=== PATIENT | male | born 1980 | race Caucasian/White ===

== ENCOUNTER 2019-11-29 15:40 | Inpatient (IN) ==
--- NOTE | 2019-11-29 16:18 | Emergency Department Note ---
History of Present Illness General Chief complaint: Shortness of Breath/Dyspnea Stated complaint: SENT FROM [place], SOB Time Seen by Provider: 11/29/19 15:47 Source: patient Mode of arrival: ambulatory Limitations: no limitations History of Present Illness Provider complaint: Shortness of breath with exertion Onset (ago): day(s) 1 Location: chest Radiation: non-radiation Severity: moderate Associated symptoms: + cough and + fever/chills Treatments prior to arrival: none This is a 39-year-old male who presents from home with complaints of shortness of breath on exertion. Patient states he went to [facility] and after having a chest x-ray there, was referred here for additional testing. Patient states he has felt well recently and yesterday morning shortly after waking up had a vigorous fit of coughing, and subsequent to that felt a little bit short of breath with exertion or movement the rest of the day. Patient denies any sputum production. Patient states he does occasionally have symptoms which he feels are likely seasonal allergies. No recent fevers or chills. No known sick contact. No accompanying GI symptoms. No chest pain. Patient states the symptoms persisted today so he went to [facility] where he had a chest x-ray and was told he has a small pneumothorax. Patient states he was also tested for coronavirus. Patient is not a smoker, no history of asthma or other pulmonary disease. No history in him or family member of any connective tissue disorders including Marfan's. No recent trauma. Pt seen during a time of high acuity and national emergency pandemic while wearing PPE. Home Medications Home Medications Medication Instructions Recorded Confirmed Type acetaminophen [Tylenol Extra 1,000 mg PO Q6H PRN 11/29/19 11/29/19 History Strength] hydrochlorothiazide 12.5 mg PO DAILY 11/29/19 11/29/19 History loratadine [Claritin] 10 mg PO DAILY PRN 11/29/19 11/29/19 History Allergies Allergy/AdvReac Type Severity Reaction Status Date / Time No Known Allergies Allergy Unverified 11/29/19 17:07 Past Med/Surg History Surgical History (Updated 11/29/19 @ 21:15 by Lena Rockwell DO) History of wisdom tooth extraction Family History (Updated 11/29/19 @ 21:16 by Lena Rockwell DO) Other Cancer Social History (Updated 11/29/19 @ 21:16 by Lena Rockwell DO) Preferred Language: Congolese Communication Ability: [employer] Consultant Required: No Beliefs That Will Affect Care: None marital status: Single Current Living Situation: Alone Feels Safe at Home: Yes Smoking Status: Never smoker Hx Alcohol Use: Yes Alcohol type: beer, wine and hard liquor Hx Substance Use: No Review of Systems See HPI for pertinent positives & negatives. and A total of 10 systems reviewed and were otherwise negative Physical Exam Vital Signs Vital Signs - 24 hr 11/29/19 15:43 11/29/19 16:05 11/29/19 17:33 Temperature 36.9 C Temperature Source Oral Pulse Rate 120 H 105 H Pulse Rate from SpO2 Sensor 100 H Respiratory Rate 24 20 Respiratory Effort / Characteristics Non-Labored Spontaneous Blood Pressure 154/87 H 145/89 H Blood Pressure Mean 109 99 Pulse Oximetry 98 98 95 Oxygen Delivery Method Room Air Room Air Sepsis Recent Fever Within 48 Hours No Sepsis New/Unexplained Change in Mental Status No Sepsis Action Taken by Nursing No Action Required 11/29/19 17:40 11/29/19 18:00 11/29/19 18:01 Temperature Temperature Source Pulse Rate 100 H 96 H 91 H Pulse Rate from SpO2 Sensor 101 H 101 H 95 H Respiratory Rate 22 22 20 Respiratory Effort / Characteristics Blood Pressure 150/96 H Blood Pressure Mean 103 Pulse Oximetry 92 92 93 Oxygen Delivery Method Sepsis Recent Fever Within 48 Hours Sepsis New/Unexplained Change in Mental Status Sepsis Action Taken by Nursing 11/29/19 18:30 11/29/19 19:00 11/29/19 19:01 Temperature Temperature Source Pulse Rate 101 H 92 H 94 H Pulse Rate from SpO2 Sensor 102 H 95 H 93 H Respiratory Rate 22 28 H 30 H Respiratory Effort / Characteristics Blood Pressure 148/90 H 148/92 H Blood Pressure Mean 107 105 Pulse Oximetry 91 94 Oxygen Delivery Method Sepsis Recent Fever Within 48 Hours Sepsis New/Unexplained Change in Mental Status Sepsis Action Taken by Nursing 11/29/19 19:30 11/29/19 19:31 11/29/19 20:00 Temperature Temperature Source Pulse Rate 99 H 94 H 96 H Pulse Rate from SpO2 Sensor 99 H 95 H 97 H Respiratory Rate 28 H 24 24 Respiratory Effort / Characteristics Blood Pressure 137/92 134/103 H Blood Pressure Mean 102 118 Pulse Oximetry 94 94 91 Oxygen Delivery Method Sepsis Recent Fever Within 48 Hours Sepsis New/Unexplained Change in Mental Status Sepsis Action Taken by Nursing 11/29/19 20:01 11/29/19 20:30 Temperature Temperature Source Pulse Rate 99 H 100 H Pulse Rate from SpO2 Sensor 103 H Respiratory Rate 28 H 25 H Respiratory Effort / Characteristics Blood Pressure 132/93 Blood Pressure Mean 111 Pulse Oximetry 95 Oxygen Delivery Method Sepsis Recent Fever Within 48 Hours Sepsis New/Unexplained Change in Mental Status Sepsis Action Taken by Nursing GENERAL: alert, well appearing, well nourished, no distress, non-toxic EYE EXAM: normal conjunctiva, PERRL and EOM's grossly intact OROPHARYNX: no exudate, no erythema, lips, buccal mucosa, and tongue normal and mucous membranes are moist NECK: supple, no nuchal rigidity, no adenopathy, non-tender LUNGS: Clear to auscultation. Normal chest wall mechanics, no w/r/r, slightly decreased with auscultation of the left upper lobe HEART: no murmurs, S1 normal and S2 normal ABDOMEN: abdomen soft, non-tender, normo-active bowel sounds, no masses, no rebound or guarding. BACK: Back is symmetrical on inspection and there is no deformity, no midline tenderness, no CVA tenderness. SKIN: no rashes and no bruising UPPER EXTREMITIES: upper extremities are grossly normal. FROM, nml pulses b/l. LOWER EXTREMITIES: No pitting edema. FROM, nml pulses b/l. NEURO EXAM: Normal sensorium, cranial nerves II-XII grossly intact, normal speech, no gross weakness of arms, no gross weakness of legs. Gross sensation intact. Procedures Chest Tube Chest Tube 1: Chest Tube Location: left Size of Tube (cm): 11 Chest Tube Prep: Yes other Local Anesthetic: lidocaine 1% and with epi Amount of anesthesia used (mL): 4 Incision Made With: #11 blade Post Procedure: other Tube Drainage: none Post Procedure CXR?: Yes Patient Tolerated Procedure: Yes Course Course 1640: Case discussed with Dr. Zimmerman, pulmonology. Requests for a chest tube to be placed here and then patient to have a noncontrast CT and admitted to the hospitalist service. 1849: CAse discussed with Dr. Lal. 2015: I was contacted by Dr. Rockwell, as follow-up chest x-ray appears that patient's left lung is still collapsed and not reinflating as expected. 2035: Patient's vital signs continue to be stable. Patient denies any increased work of breathing. For event apparatus examined again to look for any dislodgment or obstruction. 2100: Time spent by myself, charge nurse and additional nursing staff trying to set up suction per your event instruction guidelines and the packaging. We tried to dial back the wall suction initially, however then transferred over to a Pleur-evac waterseal device. This was connected to the Thora vent using the sterile tubing provided in the packaging. 5: I again checked on the patient and he remains hemodynamically stable with no changing symptoms. Again examined the device and tried to provide additional seal with taping along the top. The valve was no longer oscillating as would be expected. Suction was discontinued and I tried to manually aspirate air out of the lung. We took another chest x-ray and this shows showed the collapse. 0: I replaced the Thora vent catheter and then manually aspirated additional air of the lung. I sent this for approximately 20 to 25 minutes at bedside and patient reported feeling improved and a sense of needing to cough. I then stopped on the patient that this process became painful and a small amount of blood was noted coming up through the device. A repeat chest x-ray was ordered. 2225: Repeat chest x-ray shows improvement in reexpansion of the left lung. Patient reports feeling markedly improved. Vital signs remained stable. Case discussed with hospitalist again to update on condition. Administered Medications Acetaminophen (Tylenol) 1,000 mg PO Q6H PRN PRN Reason: Pain Stop: 12/29/19 23:41 Last Admin: 11/30/19 16:05 Dose: 1,000 mg Documented by: [id number] Admin: 11/30/19 05:20 Dose: 1,000 mg Documented by: [id number] Hydrochlorothiazide (Hctz) 12.5 mg PO DAILY BORA Stop: 12/30/19 08:59 Last Admin: 11/30/19 09:21 Dose: 12.5 mg Documented by: [id number] Discontinued Medications Fentanyl Citrate (Fentanyl Citrate) 50 mcg IV Q15M PRN PRN Reason: Pain Stop: 12/13/19 17:33 Last Admin: 11/29/19 17:50 Dose: 50 mcg Documented by: [id number] Lorazepam (Ativan) 0.5 mg in 1 mls @ 0.5 mls/min IV UD PRN PRN Reason: Anxiety Stop: 12/29/19 17:33 Last Admin: 11/29/19 17:48 Dose: 0.5 mls/min Documented by: [id number] Sodium Chloride (Nss 1000ml) 1,000 mls @ 125 mls/hr IV .Q8H BORA Stop: 12/29/19 17:44 Last Infusion: 11/29/19 23:20 Dose: 0 mls/hr Documented by: [id number] Admin: 11/29/19 17:48 Dose: 125 mls/hr Documented by: [id number] Lidocaine/Epinephrine (Buffered Xylocaine/Epinephrine 1%) Confirm Administered Dose 20 ml .ROUTE .STK-MED ONE Stop: 11/29/19 17:56 Last Admin: 11/29/19 17:58 Dose: 20 ml Documented by: [id number] Critical Care Time Critical Care Time: Yes Total Critical Care Time: 62 Critical care of 62min performed to assess and manage high likelihood of life- threatening pneumothorax, involving labs and chest x-rays performed with assessment to evaluate pneumothorax diagnosis with frequent reassessment. This time includes bedside time, treatment discussions with patient/family/consultants, documentation time and excludes procedure time. Medical Decision Making Differential Diagnosis Differential diagnoses includes but is not limited to pneumonia, bronchitis, COPD/Asthma exacerbation, pneumothorax, pulmonary embolism, congestive heart failure, acute coronary syndrome Medical Records Attestation: I reviewed the patient's medical records. Home Medications Current Medication List: was personally reviewed by me Laboratory Data Attestation: I reviewed the patient's lab results. Result diagrams: 11/29/19 17:28 11/29/19 17:28 Lab Results 11/29/19 11/29/19 Range/Units 17:28 17:28 WBC 13.27 H (4.8-10.8) K/uL RBC 5.08 (4.7-6.1) M/uL Hgb 16.0 (14.0-18.0) g/dL Hct 44.7 (42-52) % MCV 88.0 (80-100) fL MCH 31.5 (25-34) pg MCHC 35.8 (32-36) g/dL RDW Std Deviation 40.2 (36.4-46.3) fL RDW Coeff of Danny 12.6 (11.5-14.5) % Plt Count 333 (130-400) K/uL MPV 9.5 (7.4-10.4) fL Immature Gran % (Auto) 0.2 % Neut % (Auto) 82.3 % Lymph % (Auto) 8.2 % [place] % (Auto) 8.2 % Eos % (Auto) 0.7 % Baso % (Auto) 0.4 % Immature Gran # (Auto) 0.03 H (0.00-0.02) K/uL Neut # (Auto) 10.92 H (1.4-6.5) K/uL Lymph # (Auto) 1.09 L (1.2-3.4) K/uL [place] # (Auto) 1.09 H (0.11-0.59) K/uL Eos # (Auto) 0.09 (0-0.5) K/uL Baso # (Auto) 0.05 (0-0.2) K/uL Sodium 138 (136-145) mmol/L Potassium 3.5 (3.5-5.1) mmol/L Chloride 102 (98-107) mmol/L Carbon Dioxide 30 (21-32) mmol/L Anion Gap 6.0 (3-11) BUN 8 (7-18) mg/dl Creatinine 1.09 (0.6-1.4) mg/dl Est Cr Clr Drug Dosing 101.8 ml/min Est GFR ( Amer) 100.0 Est GFR (Non-Af Amer) 86.3 BUN/Creatinine Ratio 7.7 L (10-20) Glucose 91 (70-99) mg/dl Calcium 9.0 (8.5-10.1) mg/dl Total Bilirubin 0.5 (0.2-1) mg/dl AST 10 L (15-37) U/L ALT 26 (12-78) U/L Alkaline Phosphatase 81 (45-117) U/L Total Protein 7.9 (6.4-8.2) gm/dl Albumin 4.0 (3.4-5.0) gm/dl Globulin 3.9 (2.5-4.0) gm/dl Albumin/Globulin Ratio 1.0 (0.9-2) Imaging Data Radiologist's Impression: XR chest 2V PA/lateral CLINICAL HISTORY: pneumothorax COMPARISON STUDY: No previous studies for comparison. FINDINGS: 50% left-sided pneumothorax. Right lung is clear. Diaphragms are smooth. IMPRESSION: 50% left-sided pneumothorax. ACT 112: Negative or not required by law. The above report was generated using voice recognition software. It may contain grammatical, syntax or spelling errors. Electronically signed by: Jaime Mcknight M.D. 11/29/2019 4:[address] chest wo con CT DOSE: 431.98 mGycm HISTORY: Dyspnea pneumothorax, s/p thoravent TECHNIQUE: Multiaxial CT images of the chest were performed without contrast. A dose lowering technique was utilized adhering to the principles of ALARA. COMPARISON: None. FINDINGS: 50-60% left-sided pneumothorax. The collapsed lung suggests either compressive atelectasis versus left basilar infiltrative as well as left upper lobe infiltrative process. Right lung is considered clear. No evidence for right-sided pneumothorax. IMPRESSION: 1. 50-60% left-sided pneumothorax. 2. Compressive atelectasis of the left lower lobe as well as components of the left upper lobe. 3. This may be on the basis of compressive atelectasis versus infiltrative change. 4. Right lung is clear. ACT 112: Negative or not required by law. The above report was generated using voice recognition software. It may contain grammatical, syntax or spelling errors. Electronically signed by: Jaime Mcknight M.D. 11/29/2019 7:24 PM ECG Data Indication: + SOB/dyspnea Rate (beats per minute): 94 Rhythm: + normal sinus ECG Intervals/blocks: + Normal QRS and + Normal QT ECG [place]: + Normal ECG ST segments: + T-wave inversions (III) Comparison ECG Date: no prior available Blood Pressure Blood Pressure Findings: Normal blood pressure MDM Narrative Patient presenting here after spontaneous pneumothorax. No recent trauma. No history of lung disease, asthma, smoking, connective tissue disorder. Possible rupture blood with fit of coughing yesterday that seem to initiate the patient's symptoms. Case discussed with pulmonology who can follow the patient and request placement of a chest tube and admission to the hospitalist service. Patient hemodynamically stable throughout. Thora vent catheter placed, and after eventual troubleshooting and replacement patient with reexpanded left lung with good results. Patient never hypoxic, tachypnea improved. Case discussed with hospitalist and patient was seen in the emergency room by pulmonology. Patient was kept aware of all results and plan, and verbalized understanding. CT of the chest performed per pulmonology request. An order was placed for continuous cardiac monitoring. The monitor shows a rate of 90 with normal sinus_ rhythm. Impression & Plan Pneumothorax Discharge Plan Visit Data *Final* Discharge Date/Time: 11/29/19 23:13 Chief Complaint: Shortness of Breath/Dyspnea Stated Complaint: SENT FROM [facility], [facility] ED Provider: Isabel Liu Discharge Problem: Pneumothorax Patient Disposition: Admitted As Inpatient Discharge Instructions Interventions: ED Discharge Assessment Last Done: 11/29/19 23:13 Discharge Problem: Pneumothorax Qualifiers: Pneumothorax type: spontaneous, primary Qualified Code(s): J93.11 - Primary spontaneous pneumothorax
--- NOTE | 2019-11-29 16:38 | XRay Report ---
XR chest 2V PA/lateral CLINICAL HISTORY: pneumothorax COMPARISON STUDY: No previous studies for comparison. FINDINGS: 50% left-sided pneumothorax. Right lung is clear. Diaphragms are smooth. IMPRESSION: 50% left-sided pneumothorax. ACT 112: Negative or not required by law. The above report was generated using voice recognition software. It may contain grammatical, syntax or spelling errors. Electronically signed by: Jaime Mcknight M.D. 11/29/2019 4:37 PM
[2019-11-29] MEDS ORDERED: fentaNYL citrate 100 MCG/2 ML VIAL IV PRN (17:34)
[2019-11-29] MEDS ORDERED: LORazepam 0.5 MG/1 ML VIAL IV PRN (17:34)
[2019-11-29] MEDS ORDERED: SODIUM CHLORIDE 0.9% 1000ML 1,000 ML IV SCH (17:45)
[2019-11-29 17:55] LABS: Basophils # (auto) 0.05 K/uL (0-0.2); Basophils % (auto) 0.4 %; Eosinophils # (auto) 0.09 K/uL (0-0.5); Eosinophils % (auto) 0.7 %; Hematocrit (blood only) 44.7 % (42-52); Immature Granulocytes # (auto) 0.03 K/uL (0.00-0.02); Immature Granulocytes % (auto) 0.2 %; Lymphocytes # (auto) 1.09 K/uL (1.2-3.4); Lymphocytes % (auto) 8.2 %; Mean Corpuscular Hemoglobin 31.5 pg (25-34); Mean Corpuscular Hgb Conc 35.8 g/dL (32-36); Mean Platelet Volume 9.5 fL (7.4-10.4); Monocytes # (auto) 1.09 K/uL (0.11-0.59); Monocytes % (auto) 8.2 %; Neutrophils # (auto) 10.92 K/uL (1.4-6.5); Neutrophils % (auto) 82.3 %; Platelet Count 333 K/uL (130-400); RDW Coefficient of Variation 12.6 % (11.5-14.5); RDW Standard Deviation 40.2 fL (36.4-46.3); Red Blood Count 5.08 M/uL (4.7-6.1); White Blood Count 13.27 K/uL (4.8-10.8)
[2019-11-29] MEDS ORDERED: LIDO/EPINEPHRINE/SOD BICARB 20 ML VIAL ONE (17:55)
[2019-11-29 18:09] LABS: BUN Creatinine Ratio 7.7 (10-20); Creatinine Clr Calc Pharmacy 101.8 ml/min; Est GFR (Non-African American) 86.3; Potassium 3.5 mmol/L (3.5-5.1)
[2019-11-29 18:12] LABS: Bilirubin,Total 0.5 mg/dl (0.2-1); Globulin 3.9 gm/dl (2.5-4.0); Total Protein 7.9 gm/dl (6.4-8.2)
--- NOTE | 2019-11-29 18:55 | Pulmonary Consultation ---
Date of Consultation November 29, 2019 Assessment & Plan (1) Pneumothorax: Impression: 39-year-old with spontaneous pneumothorax. This was after an episode of coughing. Mary Grace effect is possible. Rupture of apical bleb would also be in the differential. No history of structural lung disease, asthma, occupational or environmental exposure to suggest structural lung disease. Recommendations: 1. Pneumothorax: We will await follow-up imaging to see if it is resolved. The Thora vent typically cannot be attached to suction so we will have to see how his follow-up imaging looks. If there is significant residual pneumothorax, we may need to place a catheter such as a pneumo dart order small bore chest tube. Await CT scan of the chest to determine whether or not there is significant str uctural lung disease. The patient was advised that he should not fly by air for 6 weeks or participate in any significant changes in altitude or air pressure including diving. 3. Pain control per primary service. Chest x-ray in a.m. Additional recommendations will be based on follow-up imaging. Recommendations and plan were discussed with the patient. Questions were answered to the best my ability. He expressed understanding and is in agreement with plan as outlined. History of Present Illness History of Present Illness Asked by the ER to evaluate this patient with a spontaneous pneumothorax. History is obtained from discussion with the patient as well as review the electronic medical record. Patient is a 39-year-old non-smoking male who states he woke up yesterday with a cough. He did not feel any popping in his chest and essentially did not do much yesterday. Today he experience of shortness of breath and initially was seen at an urgent care at an outside facility. Apparently they performed a chest x-ray which is not available to review and told him he had a collapsed lung and referred him to the emergency department here. On arrival here his vital signs were stable. Chest x-ray demonstrated only approximately 50% left-sided pneumothorax. The ER staff has placed a left anterior Thora vent. Follow-up imaging is currently pending. Per nursing, the Thora vent was aspirated once it was placed. The patient denies any family history of lung disease. He is a non-smoker. No e-cigarette use. No viral illness symptoms. No family history of pneumothorax. No history of skin lesions. No trauma Allergies Allergy/AdvReac Type Severity Reaction Status Date / Time No Known Allergies Allergy Unverified 11/29/19 17:07 Home Medications Home Medications Medication Instructions Recorded Confirmed Type acetaminophen [Tylenol Extra 1,000 mg PO Q6H PRN 11/29/19 11/29/19 History Strength] hydrochlorothiazide 12.5 mg PO DAILY 11/29/19 11/29/19 History loratadine [Claritin] 10 mg PO DAILY PRN 11/29/19 11/29/19 History Patient History Social History Feels Safe at Home: Yes Smoking Status: Never smoker Review of Systems Review of Systems: All systems reviewed & are unremarkable except as noted in HPI & below Physical Exam Constitutional: WD/WN, vitals as above Neck: trachea midline, no thyromegaly Respiratory: normal respiratory effort, lungs clear to auscultation Cardiovascular: RRR, no murmur, no edema Chest (Breasts): Additional Comments: Left anterior Thora vent in place. Gastrointestinal (Abdomen): normal bowel sounds, soft, nontender, no hepatosplenomegaly Musculoskeletal: Extremities: extremities normal to inspection Skin: no rashes, warm and dry Neurologic: Nonfocal exam Lymphatic: no cervical lymphadenopathy Results & Data Results & Data ([facility]) Vital Signs (Past 12 Hours) Vital Signs Temp Pulse Resp BP Pulse Ox 11/29/19 17:40 100 H 22 92 11/29/19 17:33 105 H 20 145/89 H 95 11/29/19 16:05 98 11/29/19 15:43 36.9 C 120 H 24 154/87 H 98 Laboratory Results 11/29/19 17:28 11/29/19 17:28 Diagnostic Findings Chest x-ray independently reviewed. 50% left-sided pneumothorax identified. Follow-up imaging post catheter placement is pending. PG Care Time/CCT Total # of Minutes Spent Total Time Spent with Patient: Total time spent is greater than 50% in coordination of care (as documented) at patient's floor/unit and/or counseling patient: Coding Level of Care Code 33339 Inpt Consult Level 4 Diagnoses Pneumothorax J93.9
--- NOTE | 2019-11-29 19:25 | CT Scan Report ---
CT chest wo con CT DOSE: 431.98 mGycm HISTORY: Dyspnea pneumothorax, s/p thoravent TECHNIQUE: Multiaxial CT images of the chest were performed without contrast. A dose lowering techni que was utilized adhering to the principles of ALARA. COMPARISON: None. FINDINGS: 50-60% left-sided pneumothorax. The collapsed lung suggests either compressive atelectasis versus left basilar infiltrative as well as left upper lobe infiltrative process. Right lung is considered clear. No evidence for right-sided pneumothorax. IMPRESSION: 1. 50-60% left-sided pneumothorax. 2. Compressive atelectasis of the left lower lobe as well as components of the left upper lobe. 3. This may be on the basis of compressive atelectasis versus infiltrative change. 4. Right lung is clear. ACT 112: Negative or not required by law. The above report was generated using voice recognition software. It may contain grammatical, syntax or spelling errors. Electronically signed by: Jaime Mcknight M.D. 11/29/2019 7:24 PM
--- NOTE | 2019-11-29 21:07 | History & Physical Report ---
Date of Service November 29, 2019 Assessment & Plan (1) Pneumothorax: 39yo C male with history of HTN presenting with spontaneous PTX on left. He is hemodynamically stable, no tension physiology, adequate oxygenation on RA with no respiratory distress. Thoravent placed by ER attending, manual e vacuation attempted. -Admit to PCU -Place Thora-vent on low suction - is able to handle up to 15cm/H20 of suction. Will attempt suction. -Repeat CXR in AM -Pulmonary Consultation appreciated Present on Admission?: Yes (2) Hypertension: Blood pressure stable at present -Continue HCTZ F/E/N - Heplock. Monitor electrolytes and replete as needed Ppx - Low risk for DVT Code - Full Dispo -Admit to PCU Present on Admission?: Yes History of Present Illness Chief Complaint: spontaneous PTX Primary Care Provider: Aubrey Torres Hima Bowles is a pleasant 39yo C male with history of HTN on HCTZ therapy presenting with left sided spontaneous PTX. He reports developing a cough yesterday and some dyspnea on exertion that persisted through the day. His symptoms improved slightly but he still noted significant VENTURA and slight cough. He was seen at Urgent Care and had a CXR performed which revealed a left sided pneumothorax. Patient is comfortable, denies SOB at rest, no CP. He has never had PTX in the past. No history of structural lung disease, COPD/Asthma/Fibrosis. No trauma. No additional complaints at this time. Patient denies fevers/chills/nausea/vomiting/diarrhea/constipation. No change in taste or smell. ER Course: NSS x 1 L, Ativan 0.5mg, Fentanyl 50mcg. Thora-vent placement by ER attending Allergies Allergy/AdvReac Type Severity Reaction Status Date / Time No Known Allergies Allergy Unverified 11/29/19 17:07 Home Medications Home Medications Medication Instructions Recorded Confirmed Type acetaminophen [Tylenol Extra 1,000 mg PO Q6H PRN 11/29/19 11/29/19 History Strength] hydrochlorothiazide 12.5 mg PO DAILY 11/29/19 11/29/19 History loratadine [Claritin] 10 mg PO DAILY PRN 11/29/19 11/29/19 History Past Med/Surg History Medical History (Updated 11/29/19 @ 21:24 by Lena Rockwell DO) Hypertension Surgical History (Updated 11/29/19 @ 21:15 by Lena Rockwell DO) History of wisdom tooth extraction Family History (Updated 11/29/19 @ 21:16 by Lena Rockwell DO) Other Cancer Social History (Updated 11/29/19 @ 21:16 by Lena Rockwell DO) marital status: Single Feels Safe at Home: Yes Smoking Status: Never smoker Hx Alcohol Use: Yes Alcohol type: beer Hx Substance Use: No Review of Systems Review of Systems: All systems reviewed & are unremarkable except as noted in HPI & below Physical Exam Physical Exam: General: patient resting comfortably, NAD, non-toxic in appearance, AA&O x 4, facemask in place Skin: warm, dry, intact, no rashes or lesions HEENT: NC/AT, PERRL, EOMI, anicteric sclera, conjunctiva without injection, external ear normal to inspection and nontender, nares patent, moist mucus membranes, dentition intact, no oropharyngeal lesions, neck supple, trachea midline, no LAD, no thyromegaly, no JVD Heart: +S1/S2, regular, no m/r/g Lungs: absent breath sounds left apex to mid-lung, normal air entry in right, no rales/rhonchi/wheezes, Thora-vent in place Abd: +BS, soft, NT/ND, no masses/organomegaly/ascites Ext: warm, 2+ pulses in UE/LE bilaterally, no clubbing/cyanosis or edema Neuro: nonfocal, patient AA&O x 4, speech intact, no facial droop, moving all extremities on command with equal strength 5/5 Results & Data Results & Data ([facility]) Vital Signs (Past 12 Hours) Vital Signs Temp Pulse Resp BP Pulse Ox 11/29/19 20:01 99 H 28 H 11/29/19 20:00 96 H 24 134/103 H 91 11/29/19 19:31 94 H 24 94 11/29/19 19:30 99 H 28 H 137/92 94 11/29/19 19:01 94 H 30 H 94 11/29/19 19:00 92 H 28 H 148/92 H 11/29/19 18:30 101 H 22 148/90 H 91 11/29/19 18:01 91 H 20 93 11/29/19 18:00 96 H 22 150/96 H 92 11/29/19 17:40 100 H 22 92 11/29/19 17:33 105 H 20 145/89 H 95 11/29/19 16:05 98 11/29/19 15:43 36.9 C 120 H 24 154/87 H 98 Laboratory Results Lab Results 11/29/19 11/29/19 Range/Units 17:28 17:28 WBC 13.27 H (4.8-10.8) K/uL RBC 5.08 (4.7-6.1) M/uL Hgb 16.0 (14.0-18.0) g/dL Hct 44.7 (42-52) % MCV 88.0 (80-100) fL MCH 31.5 (25-34) pg MCHC 35.8 (32-36) g/dL RDW Std Deviation 40.2 (36.4-46.3) fL RDW Coeff of Danny 12.6 (11.5-14.5) % Plt Count 333 (130-400) K/uL MPV 9.5 (7.4-10.4) fL Immature Gran % (Auto) 0.2 % Neut % (Auto) 82.3 % Lymph % (Auto) 8.2 % [place] % (Auto) 8.2 % Eos % (Auto) 0.7 % Baso % (Auto) 0.4 % Immature Gran # (Auto) 0.03 H (0.00-0.02) K/uL Neut # (Auto) 10.92 H (1.4-6.5) K/uL Lymph # (Auto) 1.09 L (1.2-3.4) K/uL [place] # (Auto) 1.09 H (0.11-0.59) K/uL Eos # (Auto) 0.09 (0-0.5) K/uL Baso # (Auto) 0.05 (0-0.2) K/uL Sodium 138 (136-145) mmol/L Potassium 3.5 (3.5-5.1) mmol/L Chloride 102 (98-107) mmol/L Carbon Dioxide 30 (21-32) mmol/L Anion Gap 6.0 (3-11) BUN 8 (7-18) mg/dl Creatinine 1.09 (0.6-1.4) mg/dl Est Cr Clr Drug Dosing 101.8 ml/min Est GFR ( Amer) 100.0 Est GFR (Non-Af Amer) 86.3 BUN/Creatinine Ratio 7.7 L (10-20) Glucose 91 (70-99) mg/dl Calcium 9.0 (8.5-10.1) mg/dl Total Bilirubin 0.5 (0.2-1) mg/dl AST 10 L (15-37) U/L ALT 26 (12-78) U/L Alkaline Phosphatase 81 (45-117) U/L Total Protein 7.9 (6.4-8.2) gm/dl Albumin 4.0 (3.4-5.0) gm/dl Globulin 3.9 (2.5-4.0) gm/dl Albumin/Globulin Ratio 1.0 (0.9-2) Diagnostic Findings XR chest 2V PA/lateral CLINICAL HISTORY: pneumothorax COMPARISON STUDY: No previous studies for comparison. FINDINGS: 50% left-sided pneumothorax. Right lung is clear. Diaphragms are smooth. IMPRESSION: 50% left-sided pneumothorax. ACT 112: Negative or not required by law. The above report was generated using voice recognition software. It may contain grammatical, syntax or spelling errors. Electronically signed by: Jaime Mcknight M.D. 11/29/2019 4:37 PM Dictated: 11/29/19 1637 Transcribed: 11/29/[address] chest wo con CT DOSE: 431.98 mGycm HISTORY: Dyspnea pneumothorax, s/p thoravent TECHNIQUE: Multiaxial CT images of the chest were performed without contrast. A dose lowering technique was utilized adhering to the principles of ALARA. COMPARISON: None. FINDINGS: 50-60% left-sided pneumothorax. The collapsed lung suggests either compressive atelectasis versus left basilar infiltrative as well as left upper lobe infiltrative process. Right lung is considered clear. No evidence for right-sided pneumothorax. IMPRESSION: 1. 50-60% left-sided pneumothorax. 2. Compressive atelectasis of the left lower lobe as well as components of the left upper lobe. 3. This may be on the basis of compressive atelectasis versus infiltrative change. 4. Right lung is clear. ACT 112: Negative or not required by law. The above report was generated using voice recognition software. It may contain grammatical, syntax or spelling errors. Electronically signed by: Jaime Mcknight M.D. 11/29/2019 7:24 PM Dictated: 11/29/191921 Transcribed: 11/29/191921 ECG Additional Comments: The study shows NSR at 94bpm, normal axis, ZD=181, DDI=961, OVs=168, no acute ischemic changes Code Status & VTE Plan Code Status FULL PG Care Time/CCT Total # of Minutes Spent Total Time Spent with Patient: Total time spent is greater than 50% in coordination of care (as documented) at patient's floor/unit and/or counseling patient: Coding Level of Care Code 69942 Initial Inpt Care Lvl 2 Diagnoses Pneumothorax J93.11 Pneumothorax type: spontaneous, primary Hypertension I10 Hypertension type: unspecified (1) Pneumothorax Pneumothorax type: spontaneous, primary Qualified Code(s): J93.11 - Primary spontaneous pneumothorax (2) Hypertension Hypertension type: unspecified Qualified Code(s): I10 - Essential (primary) hypertension
[2019-11-30] MEDS: ACETAMINOPHEN 500 MG TAB PO PRN ×2 (05:20→16:05)
--- NOTE | 2019-11-30 07:43 | XRay Report ---
XR chest 1V portable CLINICAL HISTORY: Pneumothorax. COMPARISON STUDY: Chest CT November 29, 2019. Chest radiograph November 29, 2019 at 10:24 PM. FINDINGS: A small left apical pneumothorax is noted with superior pleural separation of 3 mm. This is similar to prior exam. Left pleural catheter is in place. Linear left basilar opacity favors atelect asis. Cardiac size is normal. There is no right pneumothorax. No pleural effusion is identified. IMPRESSION: Small left apical pneumothorax, similar to prior exam. ACT 112: Negative or not required by law. Electronically signed by: Evert Gregorio M.D. 11/30/2019 7:41 AM
--- NOTE | 2019-11-30 07:45 | XRay Report ---
XR chest 1V portable HISTORY: s/p thoravent COMPARISON: Chest 11/29/2019. FINDINGS: Interval placement of a chest tube within the left upper thorax. Large left pneumothorax wi th near complete collapse of the left lung persists. No significant midline shift. The right lung is clear. No pleural effusions. IMPRESSION: Interval placement of a left upper chest tube. The large left pneumothorax persists. ACT 112: Negative or not required by law. Electronically signed by: Josef Schumacher M.D. 11/30/2019 7:44 AM
--- NOTE | 2019-11-30 07:46 | XRay Report ---
XR chest 1V portable HISTORY: post thoravent COMPARISON: Chest 11/29/2019. FINDINGS: Left upper chest tube remains unchanged in position. Near-complete resolution of the left p neumothorax. Maximal pleural gap at the apex measures 7 mm. A few small linear densities within the l eft upper and lower lung zones likely represent subsegmental atelectasis. The right lung is clear. No mediastinal shift. The heart is normal in size. IMPRESSION: Near complete resolution of the left pneumothorax. Left upper chest tube remains unchanged in positio n. ACT 112: Negative or not required by law. Electronically signed by: Jsoef Schumacher M.D. 11/30/2019 7:45 AM
[2019-11-30] MEDS ORDERED: KETOROLAC TROMETHAMINE 15 MG/ML VIAL IV PRN (08:44)
--- NOTE | 2019-11-30 08:47 | Hospitalist Progress Note ---
Date of Service November 30, 2019 Assessment & Plan (1) Pneumothorax: 39 yo M with PMH HTN, admitted for management of pneumothorax. 1. Pneumothorax, improving - Thoravent in place, CXR at noon to follow improvement of PTX - pulm team discussed with patient at length plan options regarding advancement of thoravent to chest tube, removal of thoravent etc depending on CXR results. - appreciate continuing recommendations from pulmonary team 2. HTN - home HCTZ Code status: full code Dispo: home (2) Hypertension: Admission and Anticipated Discharge Date Admission Date: November 29, 2019 Supervising Physician Co-Signing Physician Notes I personally examined the patient and verified all alba points of history and exam, discussed case, and agree with decision making with Dr Grover. feeling ok reasonable pain control no significant SOB. vitals noted nad heent nc at mmm breathing unlabored no accessory muscles good effort skin no rashes no pallor or icterus spontaneous pneumothorax - oxygenating well, pain controlled. otherwise management per pulmonary (input appreciated) HTN - continue home meds, follow, control reasonable. otherwise as above Subjective 39 yo M who presented to ED with acute shortness of breath and dyspnea, found to have a pneumothorax on CXR, thoravent placed in ED. This morning feeling much improved, states he feels 80% of his normal function today. No trouble with breathing while walking around the room, no pain with inspiration. Denies hx of vaping, cigarette or chewing tobacco, says he smokes a cigar 1-2 times a year. 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 Only new exposure was staining deck on Saturday with paint but was not wearing a mask while doing so. Review of Systems Constitutional: no fever, no chills, no body aches and no fatigue Respiratory: no cough and no dyspnea Cardiovascular: no chest pain, no dyspnea and no edema Gastrointestinal: no abdominal pain, no nausea, no vomiting, no constipation and no diarrhea/loose stools Physical Exam Constitutional: cooperative; no acute distress and not ill appearing Neck: normal visual inspection Respiratory: normal respiratory effort and able to speak in complete sentences; no respiratory distress, no labored breathing, no retractions, no cough and no audible wheezes Auscultation: lungs clear to auscultation lucretia aterally; no crackles, no rales, no rhonchi and no wheezes Cardiovascular: Rate/Rhythm: regular rate and regular rhythm Heart Sounds: normal S1 and normal S2; no gallop, no murmur and no cardiac rub Vessels: posterior tibial pulses present Extremities: no pedal edema and no edema Gastrointestinal (Abdomen): Inspection/Auscultation: abdomen normal to inspection and normal bowel sounds; abdomen not distended Percussion/Palpation: abdomen soft; abdomen nontender, no guarding, abdomen not rigid and no abdominal mass Results & Data Results & Data ([facility]) Vital Signs (Past 12 Hours) Vital Signs Temp Pulse Pulse Pulse Resp BP BP 11/30/19 07:16 36.8 C 86 17 118/73 11/30/19 04:00 36.7 C 74 16 134/83 11/29/19 23:48 37.2 C 91 H 18 149/92 H 11/29/19 23:00 94 H 22 150/95 H 11/29/19 22:30 104 H 30 H 140/95 11/29/19 22:01 97 H 32 H 11/29/19 22:00 98 H 30 H 153/97 H 11/29/19 21:31 96 H 27 H 11/29/19 21:30 97 H 26 H 135/94 11/29/19 21:01 95 H 24 11/29/19 21:00 96 H 22 138/95 Pulse Ox 11/30/19 07:16 98 11/30/19 04:00 77 L 11/29/19 23:48 95 11/29/19 23:00 94 11/29/19 22:30 95 11/29/19 22:01 91 11/29/19 22:00 92 11/29/19 21:31 94 11/29/19 21:30 94 11/29/19 21:01 93 11/29/19 21:00 92 Laboratory Results WBC 13.27 K/uL (4.8-10.8) H 11/29/19 17:28 RBC 5.08 M/uL (4.7-6.1) 11/29/19 17:28 Hgb 16.0 g/dL (14.0-18.0) 11/29/19 17:28 Hct 44.7 % (42-52) 11/29/19 17:28 MCV 88.0 fL (80-100) 11/29/19 17: MCH 31.5 pg (25-34) 11/29/19 17: MCHC 35.8 g/dL (32-36) 11/29/19 17: RDW Std Deviation 40.2 fL (36.4-46.3) 11/29/19: RDW Coeff of Danny 12.6 % (11.5-14.5) 11/29/19: Plt Count 333 K/uL (130-400) 11/29/19: MPV 9.5 fL (7.4-10.4) 11/29/19: Immature Gran % (Auto) 0.2 % 11/29/19: Neut % (Auto) 82.3 % 11/29/19 17: Lymph % (Auto) 8.2 % 11/29/19 17: [place] % (Auto) 8.2 % 11/29/19 17: Eos % (Auto) 0.7 % 11/29/19 17: Baso % (Auto) 0.4 % 11/29/19: Immature Gran # (Auto) 0.03 K/uL (0.00-0.02) H 11/29/19 17: Neut # (Auto) 10.92 K/uL (1.4-6.5) H 11/29/19: Lymph # (Auto) 1.09 K/uL (1.2-3.4) L 11/29/19: [place] # (Auto) 1.09 K/uL (0.11-0.59) H 11/29/19 17: Eos # (Auto) 0.09 K/uL (0-0.5) 11/29/19: Baso # (Auto) 0.05 K/uL (0-0.2) 11/29/19 17: Sodium 138 mmol/L (136-145) 11/29/19 17: Potassium 3.5 mmol/L (3.5-5.1) 11/29/19: Chloride 102 mmol/L (98-107) 11/29/19 17: Carbon Dioxide 30 mmol/L (21-32) 11/29/19 17:28 Anion Gap 6.0 (3-11) 11/29/19 17:28 BUN 8 mg/dl (7-18) 11/29/19 17:28 Creatinine 1.09 mg/dl (0.6-1.4) 11/29/19 17:28 Est Cr Clr Drug Dosing 101.8 ml/min 11/29/19 17:28 Est GFR ( Amer) 100.0 11/29/19 17:28 Est GFR (Non-Af Amer) 86.3 11/29/19 17:28 BUN/Creatinine Ratio 7.7 (10-20) L 11/29/19 17:28 Glucose 91 mg/dl (70-99) 11/29/19 17:28 Calcium 9.0 mg/dl (8.5-10.1) 11/29/19 17:28 Total Bilirubin 0.5 mg/dl (0.2-1) 11/29/19 17:28 AST 10 U/L (15-37) L 11/29/19 17:28 ALT 26 U/L (12-78) 11/29/19 17:28 Alkaline Phosphatase 81 U/L (45-117) 11/29/19 17:28 Total Protein 7.9 gm/dl (6.4-8.2) 11/29/19 17:28 Albumin 4.0 gm/dl (3.4-5.0) 11/29/19 17:28 Globulin 3.9 gm/dl (2.5-4.0) 11/29/19 17:28 Albumin/Globulin Ratio 1.0 (0.9-2) 11/29/19 17:28 COVID-19 PCR NEGATIVE (Negative) 11/29/19 21:55 Resident Activity Tracking Resident Involvement: Resident Care Provided Care Provided: Adult Hospital Medicine (1) Pneumothorax Pneumothorax type: spontaneous, primary Qualified Code(s): J93.11 - Primary spontaneous pneumothorax (2) Hypertension Hypertension type: unspecified Qualified Code(s): I10 - Essential (primary) hypertension
[2019-11-30] MEDS: hydroCHLOROthiazide 25 MG TAB PO SCH (09:21)
--- NOTE | 2019-11-30 12:04 | Pulmonology Progress Note ---
Date of Service November 30, 2019 Assessment & Plan (1) Pneumothorax: Impression: 39-year-old with spontaneous pneumothorax. This was after an episode of coughing. Mary Grace effect is possible. Rupture of apical bleb would also be in the differential. No history of structural lung disease, asthma, occupational or environmental exposure to suggest structural lung disease. Recommendations: Pneumothorax: Chest X-Ray This Morning Demonstrates a Very Minimal Apical Pneumothorax in the Left Upper Lobe. He Has Been since yesterday evening. He was now placed on suction per the bedside nurse or per the patient. We will repeat a chest x-ray today at noon and if that appears to be similar or improved, we will remove the Thora vent. The patient was advised that he should not fly by air for 6 weeks or participate in any significant changes in altitude or air pressure including diving. Pain control per primary service. Recommendations and plan were discussed with the patient. Questions were answered to the best my ability. He expressed understanding and is in agreement with plan as outlined. Pneumothorax type: spontaneous, primary Qualified Code(s): J93.11 - Primary spontaneous pneumothorax Admission and Anticipated Discharge Date Admission Date: November 29, 2019 Subjective Patient feels much better today. Denies any chest pain. No shortness of breath. Has some mild pain around the insertion of the Thora vent. No fevers or chills. Thora vent was capped throughout the night and a repeat chest x-ray was performed this morning which demonstrated minimal apical pneumothorax. Review of Systems Review of Systems: All systems reviewed & are unremarkable except as noted in HPI & below Physical Exam Constitutional: WD/WN, vitals as above Eyes: PERRL, conjunctivae normal, anicteric sclerae ENMT: external ear and nose normal, oropharynx normal Neck: trachea midline, no thyromegaly Respiratory: normal respiratory effort Mild rhonchi in the left lower lung base. Thora vent in place in the left upper chest wall. Cardiovascular: RRR, no murmur, no edema Gastrointestinal (Abdomen): normal bowel sounds, soft, nontender, no hepatospl enomegaly Musculoskeletal: no cyanosis or clubbing, extremities motor strength 5/5 Skin: no rashes, warm and dry Neurologic: PERRL, EOMI, accommodation nl, no face palsy, no dysarthria Psychiatric: A+Ox3, euthymic affect Results & Data Results & Data ([facility]) Vital Signs (Past 12 Hours) Vital Signs Temp Pulse Pulse Resp BP BP Pulse Ox 11/30/19 11:57 97.7 F 80 17 138/77 97 11/30/19 07:16 98.2 F 86 17 118/73 98 11/30/19 04:00 98.1 F 74 16 134/83 77 L I personally reviewed the patient's laboratory data, chest imaging and recent notes. PG Care Time/CCT Total # of Minutes Spent Total Time Spent with Patient: Total time spent is greater than 50% in coordination of care (as documented) at patient's floor/unit and/or counseling patient: Coding Level of Care Code 40655 Subseq Hosp Care Lvl 3 Diagnoses Pneumothorax J93.11 Pneumothorax type: spontaneous, primary
--- NOTE | 2019-11-30 12:54 | XRay Report ---
XR chest 1V portable CLINICAL HISTORY: Pneumothorax COMPARISON STUDY: 11/30/2019 FINDINGS: The cardiac and mediastinal contours remain stable. There is slight increase in the size of a left apical pneumothorax which has a pleural separation of 8 mm. A left-sided pleural catheter is again visualized. There are subsegmental atelectatic changes at the lung bases. There is no lobar con solidation. There are no significant pleural effusions.[ IMPRESSION: Minimal interval increase in the size of a left apical pneumothorax which is a pleural se paration of 8 mm. ACT 112: Negative or not required by law. Electronically signed by: Shun Christopher M.D. 11/30/2019 12:53 PM
--- NOTE | 2019-11-30 16:48 | Billing Data ---
Date of Service November 30, 2019 Coding Level of Care Code 54268 Subseq Hosp Care Lvl 2
--- NOTE | 2019-11-30 16:54 | XRay Report ---
XR chest 1V portable CLINICAL HISTORY: Pneumothorax COMPARISON STUDY: Study performed earlier in the day FINDINGS: A left-sided chest tube remains unchanged in position. The cardiac and mediastinal contours remain stable. There are minor basilar atelectatic changes. There is no lobar consolidation. There a re no pleural effusions. There is a stable small left apical pneumothorax with pleural separation of 8 mm.[ IMPRESSION: Stable small left apical pneumothorax with pleural separation of 8 mm ACT 112: Negative or not required by law. Electronically signed by: Shun Christopher M.D. 11/30/2019 4:53 PM
--- NOTE | 2019-11-30 22:05 | Electrocardiogram Report ---
Test Reason : Blood Pressure : / mmHG Vent. Rate : 094 BPM Atrial Rate : 094 BPM P-R Int : 156 ms QRS Dur : 100 ms QT Int : 366 ms P-R-T Axes : 053 049 027 degrees QTc Int : 457 ms Poor data quality, interpretation may be adversely affected Normal sinus rhythm with sinus arrhythmia Normal ECG No previous ECGs available Confirmed by Jg Mccarty ([id number]) on 11/30/2019 10:05:27 PM Referred By: REFERRED SELF Confirmed By:Jg Mccarty
[2019-12-01] MEDS: hydroCHLOROthiazide 25 MG TAB PO SCH (08:27)
--- NOTE | 2019-12-01 08:32 | XRay Report ---
XR chest 2V PA/lateral HISTORY: 39 years-old Male Follow up ptx follow-up study in a patient with left apical pneumothorax COMPARISON: Chest radiograph 11/30/2019, chest CT 11/29/2019. TECHNIQUE: PA and lateral views of the chest FINDINGS: Unchanged size of the tiny left apical pneumothorax with pleural separation of approximately 10 mm. C ardiac mediastinal and hilar silhouettes are within normal limits. Minimal linear left lung base opac ities are present suggestive of probable atelectasis with indeterminate 11 mm nodular opacity also no paddy at the left lung base. The right lung is clear. Bones appear intact. A left-sided chest tube is a gain noted projecting over the left midlung. IMPRESSION: Unchanged tiny left apical pneumothorax. ACT 112: Negative or not required by law. The above report was generated using voice recognition software. It may contain grammatical, syntax o r spelling errors. Electronically signed by: Celestino Cuevas M.D. 12/01/2019 8:30 AM
--- NOTE | 2019-12-01 09:20 | Pulmonology Progress Note ---
Date of Service December 01, 2019 Assessment & Plan (1) Pneumothorax: Impression: 39-year-old with primary spontaneous pneumothorax Recommendations: The Thora vent was removed this morning. No significant air leak was seen in the [place] drain. Chest x-ray demonstrated minimal change in the left apical pneumothorax. We will repeat a chest x-ray at 1 PM today. If this is stable, he can be discharged home. He will need a repeat chest x-ray in 2 days. Pneumothorax type: spontaneous, primary Qualified Code(s): J93.11 - Primary spontaneous pneumothorax Admission and Anticipated Discharge Date Admission Date: November 29, 2019 Subjective Patient seen and examined this morning. Underwent chest x-ray which demonstrated minimal change to the left upper lobe apical pneumothorax. 10 mm of pleural separation noted. Patient denies any chest pain, shortness of breath, fever or chills. No significant cough. I removed the Thora vent at bedside. Patient not have any significant air leak prior to her removal. Physical Exam Constitutional: WD/WN, vitals as above Eyes: PERRL, conjunctivae normal, anicteric sclerae ENMT: external ear and nose normal, oropharynx normal Neck: trachea midline, no thyromegaly Respiratory: normal respiratory effort, lungs clear to auscultation normal respiratory effort Cardiovascular: RRR, no murmur, no edema Chest (Breasts): Additional Comments: Thora vent in place in the left upper lobe. Gastrointestinal (Abdomen): normal bowel sounds, soft, nontender, no hepatosplenomegaly Musculoskeletal: no cyanosis or clubbing, extremities motor strength 5/5 Skin: no rashes, warm and dry Neurologic: PERRL, EOMI, accommodation nl, no face palsy, no dysarthria Psychiatric: A+Ox3, euthymic affect Results & Data Results & Data ([facility]) Vital Signs (Past 12 Hours) Vital Signs Temp Pulse Resp BP Pulse Ox 12/01/19 07:56 97.7 F 72 17 135/83 97 12/01/19 03:53 97.5 F L 69 16 135/88 97 12/01/19 00:10 97.7 F 78 16 121/78 96 chest x-ray reviewed. PG Care Time/CCT Total # of Minutes Spent Total Time Spent with Patient: Total time spent is greater than 50% in coordination of care (as documented) at patient's floor/unit and/or counseling patient: Coding Level of Care Code 49622 Subseq Hosp Care Lvl 2 Diagnoses Pneumothorax J93.11 Pneumothorax type: spontaneous, primary
--- NOTE | 2019-12-01 10:36 | Hospitalist Progress Note ---
Date of Service December 01, 2019 Assessment & Plan (1) Pneumothorax: 39 yo M with PMH HTN, admitted for management of pneumothorax. 1. Pneumothorax, improving - Thoravent in place, CXR at noon to follow improvement of PTX - pulm team discussed with patient at length plan options regarding advancement of thoravent to chest tube, removal of thoravent etc depending on CXR results. - appreciate continuing recommendations from pulmonary team 2. HTN - home HCTZ Code status: full code Dispo: home (2) Hypertension: Admission and Anticipated Discharge Date Admission Date: November 29, 2019 Results & Data Results & Data ([facility]) Vital Signs (Past 12 Hours) Vital Signs Temp Pulse Resp BP Pulse Ox 12/01/19 07:56 36.5 C 72 17 135/83 97 12/01/19 03:53 36.4 C L 69 16 135/88 97 12/01/19 00:10 36.5 C 78 16 121/78 96 (1) Pneumothorax Pneumothorax type: spontaneous, primary Qualified Code(s): J93.11 - Primary spontaneous pneumothorax (2) Hypertension Hypertension type: unspecified Qualified Code(s): I10 - Essential (primary) hypertension
--- NOTE | 2019-12-01 13:10 | XRay Report ---
XR chest 2V PA/lateral CLINICAL HISTORY: s/p thora-vent removal COMPARISON STUDY: 12/01/2019 FINDINGS: Left-sided chest tube has been removed. There are minor basilar atelectatic changes. There is no lobar consolidation. There is a tiny left apical pneumothorax with pleural separation a 4 mm. N o pleural effusions are visualized. There is no failure. IMPRESSION: 1. Interval removal of the left-sided chest tube 2. Tiny left apical pneumothorax with a pleural separation of 4 mm ACT 112: Negative or not required by law. Electronically signed by: Shun Christopher M.D. 12/01/2019 1:08 PM
--- NOTE | 2019-12-01 14:32 | Discharge Summary ---
Date of Service December 01, 2019 Admission HPI Per Admitting Provider Hima Bowles is a pleasant 39yo C male with history of HTN on HCTZ therapy presenting with left sided spontaneous PTX. He reports developing a cough yesterday and some dyspnea on exertion that persisted through the day. His symptoms improved slightly but he still noted significant VENTURA and slight cough. He was seen at Urgent Care and had a CXR performed which revealed a left sided pneumothorax. Patient is comfortable, denies SOB at rest, no CP. He has never had PTX in the past. No history of structural lung disease, COPD/Asthma/Fibrosis. No trauma. No additional complaints at this time. Patient denies fe vers/chills/nausea/vomiting/diarrhea/constipation. No change in taste or smell. ER Course: NSS x 1 L, Ativan 0.5mg, Fentanyl 50mcg. Thora-vent placement by ER attending Admission Exam Per Admitting Provider General: patient resting comfortably, NAD, non-toxic in appearance, AA&O x 4, facemask in place Skin: warm, dry, intact, no rashes or lesions HEENT: NC/AT, PERRL, EOMI, anicteric sclera, conjunctiva without injection, external ear normal to inspection and nontender, nares patent, moist mucus membranes, dentition intact, no oropharyngeal lesions, neck supple, trachea midline, no LAD, no thyromegaly, no JVD Heart: +S1/S2, regular, no m/r/g Lungs: absent breath sounds left apex to mid-lung, normal air entry in right, no rales/rhonchi/wheezes, Thora-vent in place Abd: +BS, soft, NT/ND, no masses/organomegaly/ascites Ext: warm, 2+ pulses in UE/LE bilaterally, no clubbing/cyanosis or edema Neuro: nonfocal, patient AA&O x 4, speech intact, no facial droop, moving all extremities on command with equal strength 5/5 Principal Diagnosis spontaneous pneumothorax Discharge Exam Constitutional cooperative; no acute distress and not ill appearing Neck normal visual inspection Respiratory normal respiratory effort and able to speak in complete sentences; no respiratory distress, no labored breathing, no retractions, no cough and no audible wheezes Auscultation: lungs clear to auscultation bilaterally; no crackles, no rales, no rhonchi and no wheezes Cardiovascular Rate/Rhythm: regular rate and regular rhythm Heart Sounds: normal S1 and normal S2; no gallop, no murmur and no cardiac rub Vessels: posterior tibial pulses present Extremities: no pedal edema and no edema Gastrointestinal (Abdomen) Inspection/Auscultation: abdomen normal to inspection and normal bowel sounds; abdomen not distended Percussion/Palpation: abdomen soft; abdomen nontender, no guarding, abdomen not rigid and no abdominal mass Discharge Data Allergies Allergy/AdvReac Type Severity Reaction Status Date / Time No Known Allergies Allergy Unverified 11/29/19 17:07 Consultations 11/29/19 18:51 ED Decision to Admit Stat 11/29/19 23:42 Consult Pulmonology Routine Ordered Studies 11/29/19 18:22 CT chest wo con Stat Hospital Course (1) Pneumothorax: 39 yo M with PMH HTN, admitted for management of spontaneous pneumothorax. He was seen by the pulmonology service and required placement of a thoravent tube with suction to properly decompress pneumothorax, and did well with this. Pain adequately controlled with tylenol and toradol. Explained to get a follow up chest xray in 2 days per pulmonology. All other medical conditions managed per home regimens. (2) Hypertension: Total Time Total Time Spent Total Time Spent (In Minutes): <30 Discharge Plan Discharge Items Patient Disposition: Home - Self-Care Reason For Visit: SPONTANEOUS PNEUMOTHORAX Discharge Diagnosis: Spontaneous Pneumothorax Activity: Per Instructions section Non-emergency contact: Primary Care Provider and Drawing Press Operator Call non-emergency contact if: your symptoms worsen Follow-up/Referrals: Aubrey Torres [Primary Care Provider] - Diet: Regular Addtl Attending Provider Instructions: You were evaluated in the hospital for shortness of breath and chest tightness that was found to be due to a spontaneous pneumothorax and collapsed lung, likely secondary to an apical bleb that ruptured. This pneumothorax is a bubble of air that your lung from your chest wall, which made breathing and transfer of oxygen harder to do appropriately, hence your shortness of breath. This improved after placement of a Thoravent catheter that allowed removal of the air. A pneumothorax can slowly heal on its own, and at this point it appears that yours should be able to heal without you staying in the hospital. You will require a follow up chest x-ray in 2 days (12/03/19) to ensure progressive healing of the pneumothorax. Do not fly by air for 6 weeks or participate in any significant changes in altitude or air pressure including diving. If you experience worsening shortness of breath, chest tightness, or trouble breathing, return to the emergency department for evaluation. Pending Studies at Discharge: No Stand-Alone Forms: My [facility], Work/School Release (Inpt), Smoking Cessation Medications and DC Order Prescriptions: Continued hydrochlorothiazide 12.5 mg capsule 12.5 mg PO DAILY RF: 0 loratadine [Claritin] 10 mg Tablet 10 mg PO DAILY PRN (Reason: ALLERGIES) RF: 0 Discontinued acetaminophen [Tylenol Extra Strength] 500 mg Tablet 1,000 mg PO Q6H PRN (Reason: Pain) RF: 0 Discharge Orders: Discharge Order (Routine); Ordered 12/01/19 Ordered By: Massiel Henriquez/Other Patient Handouts: Pneumothorax Admission Data Admit Date/Time: 11/29/19 20:45 Attending Provider: Dontrell Carroll Admit Provider: Lena Rockwell Primary Care Provider: Aubrey Torres Other Providers: Isabela Lal ; Rakesh Zimmerman ; Lena Rockwell ; Massiel Grover Other Interventions: Discharge Summary Assessment (RN) Last Done: 12/01/19 14:36 DC Date/Time DO NOT enter until pt leaves facility: 12/01/19 15:06 Supervising Physician Co-Signing Physician Notes I personally examined the patient and verified all alba points of history and exam, discussed case, and agree with decision making with Dr Grover. feeling better feeling up to going home, CXR improved vitals noted nad heent nc at mmm breathing unlabored no accessory muscles good effort skin no rashes no pallor or icterus, repeat CXR noted spontaneous pneumothorax -now improving -stable for home -repeat CXR 2 days as outpt -otherwise as above Resident Activity Tracking Resident Involvement: Resident Care Provided Care Provided: Adult Hospital Medicine
--- NOTE | 2019-12-01 16:26 | Billing Data ---
Date of Service December 01, 2019 Coding Level of Care Code D/C Day Management <30 mins
== END 2019-12-01 15:06 | disposition home or self-care (01) | DRG 201 ==
LOC: ED 15:40 → 2S 20:45 → SUATTDRO 20:45 → 2S 23:13